=== PATIENT | female | born 1960 | race Caucasian/White ===

== ENCOUNTER 2019-03-28 09:29 | Day surgery (SDC) | payer BC ==
[~2019-03-28 09:29] MED LIST: ACETAMINOPHEN 1,000 MG/100 ML BTL IVPB ONE; CEFAZOLIN 2 Gram 2 GM/50 ML BAG IVPB ONE
[2019-03-28] MEDS ORDERED: DESFLURANE 240 ML BTL INH ONE (09:30)
[2019-03-28] MEDS ORDERED: FENTANYL PF 100MCG/2ML VIAL IV ONE (09:30)
[2019-03-28] MEDS ORDERED: DEXAMETHASONE 4 MG/ML 1ML VIAL IVP ONE (09:30)
[2019-03-28] MEDS ORDERED: LIDOCAINE 2% MDV (20MG/ML) 20ML VIAL IV ONE (09:30)
[2019-03-28] MEDS ORDERED: MIDAZOLAM HCL 2MG/2ML VIAL IV ONE (09:30)
[2019-03-28] MEDS ORDERED: PROPOFOL 10 MG/ML VIAL IV ONE (09:30)
[2019-03-28] MEDS ORDERED: KETOROLAC 30 MG/ML VIAL IVP ONE (09:30)
[2019-03-28] MEDS ORDERED: ONDANSETRON HCL IV 4 MG/2 ML VIAL IVP ONE (09:30)
[2019-03-28 09:54] LABS: HEMOGLOBIN 13.3 gm/dl (11.6-16.0)
[2019-03-28] MEDS ORDERED: RINGERS SOLUTION,LACTATED 1,000 ML IV ONE (10:25)
[2019-03-28] MEDS ORDERED: METHYLPREDNISOLONE 40MG/VIAL IU ONE (11:37)
[2019-03-28] MEDS ORDERED: BUPIVACAINE 0.25% W/EPI MPF 30ML VIAL SQ ONE (11:37)
[2019-03-28] MEDS ORDERED: BUPIVACAINE 0.5% W/EPI MPF 30 ML VIAL SQ ONE (11:37)
[2019-03-28] MEDS ORDERED: METHYLPREDNISOLONE 80MG/VIAL IM ONE (11:37)
[2019-03-28] MEDS ORDERED: BUPIVACAINE LIPOSOME/PF 133MG/10ML VIAL IU ONE (12:00)
[2019-03-28] MEDS ORDERED: BUPIVACAINE LIPOSOME/PF 133MG/10ML VIAL SQ ONE (12:00)
--- NOTE | 2019-03-29 05:58 | Operative Note ---
DATE OF SURGERY: 03/28/2019 PREOPERATIVE DIAGNOSIS: POSTERIOR HORN MEDIAL MENISCUS TEAR RIGHT KNEE. POSTOPERATIVE DIAGNOSIS: POSTERIOR HORN MEDIAL MENISCUS TEAR RIGHT KNEE. OPERATION: 1. DIAGNOSTIC ARTHROSCOPY. 2. ARTHROSCOPIC PARTIAL POSTERIOR HORN MEDIAL MENISCECTOMY. SURGEON: Remi Dean M.D. ANESTHESIA: LMA. ANESTHESIA PROVIDER: RAFIA Jefferson CRNA COMPLICATIONS: None. BLOOD LOSS: Minimal. OPERATIVE FINDINGS: Complex radial and horizontal fissure tear of the posterior horn medial meniscus approximately 67% of the meniscus was removed. The remainder of the knee cartilage, lateral meniscus, and ACL are all normal. INDICATION: This is a 58-year-old female who has had persistent mechanical symptoms catching and locking in her knee for several months and diagnosed her perioperative with medial meniscus tear and she was scheduled for the procedure above. I explained all risks and benefit in detail for the diagnosis and procedure including, but not limited to infection, nerve injury, vessel injury, stiffness, numbness and tingling of the knee, repair tear of the meniscus, the fact that she has arthrosis of the knee and that this procedure might not cure her condition and could require even further procedures, and all of her questions were answered, rehab course was outlined and she agreed to proceed. PROCEDURE: The patient brought to the Operating Room, placed in the supine position, prepped for surgery. Anesthesia was induced and her right lower extremity and knee were prepped and draped in sterile fashion. Nonsterile leg carter was previously applied. The right knee was prepped again with ChloraPrep after it was draped. Intraoperative timeout was performed. Next preoperative knee exam revealed full knee range of motion and mild effusion. Negative Jarrett's test. Trang's, anterior posterior drawer negative. Next we injected the knee with 0.5% Marcaine with epi. Standard superolateral portals established. Interomedial and lateral portals established. Diagnostic arthroscopy performed. The suprapatellar pouch was noted. The medial gutter was normal. The medial compartment revealed an obvious tear of the posterior horn of the medial meniscus, the tear was flat, flipped and rotated, it was a radial tear more central in the posterior horn towards the midline of the knee towards the intercondylar notch and it was pinching between the femur condyle and tibia and we used a combination of basket biters and khadar and trimmed and smoothed the meniscus removing about 60-70% to a smoother and stable surface, contouring it with the middle horn and the anterior horn which were intact. The cartilage in the femoral condyle and tibia was intact. Next, the intercondylar notch was normal. The ACL and PCL were intact. The lateral compartment is completely normal. The meniscus here is probed entirely and it was intact and the cartilage here was normal. The lateral gutter is normal. The patellofemoral compartment is completely normal. The patella tracked normally and the cartilage here is normal. This completed our procedures. We removed the scope equipment and bolused the knee with 0.5% Marcaine with epi and Depo-Medrol 80 mg and then infiltrated around the incisions with Exparel. A sterile dressing was applied with Tanvir wrap. The patient tolerated the procedure well. No intraoperative complications. All sponge, needle and blade counts were correct. Recovery stable and intact. Discharge to outpatient follow-up in two weeks. JOB NUMBER: [id number] MTDD
== END 2019-03-28 12:55 | disposition home or self-care (01) ==
LOC: SUR 09:29
PROVIDERS: ATTEND Orthopaedic Surgery
DX: S83.231A Complex tear of medial meniscus, current injury, right knee, initial encounter (principal)
CPT/HCPCS: 85014; 85018; 93005; C9290; J1030; J1040; J1885; J2405; J7120